=== PATIENT | female | born 1995 | race Caucasian/White ===

== ENCOUNTER 2024-06-01 01:16 | Inpatient (IN) | payer OTHER ==
[2024-06-01 01:37] VITALS: BMI 33.5
[2024-06-01] MEDS ORDERED: Acetaminophen 500 MG TAB PO PRN (02:49)
[2024-06-01] MEDS ORDERED: Misoprostol 200 MCG TAB PR PRN (02:49)
[2024-06-01] MEDS ORDERED: Methylergonovine 0.2 MG/ML VIAL IM PRN (02:49)
[2024-06-01] MEDS ORDERED: Lidocaine 1% (PF) 30 ML VIAL SC PRN (02:49)
[2024-06-01] MEDS ORDERED: Diphenoxylate HCl/Atropine Tablet PO PRN (02:49)
[2024-06-01] MEDS ORDERED: Carboprost 250 MCG/ML AMP IM PRN (02:49)
[2024-06-01] MEDS ORDERED: hydrALAZINE 20 MG/ML VIAL SLOW IVP PRN ×2 (02:49→12:58)
[2024-06-01] MEDS ORDERED: Promethazine HCl 25 MG/ML VIAL IM PRN ×2 (02:49→05:17)
[2024-06-01] MEDS ORDERED: Ondansetron PF 4 MG/2 ML Vial IVP PRN ×3 (02:49→12:58)
[2024-06-01] MEDS ORDERED: Tranexamic Acid 1,000 MG/10 ML VIAL IVP PRN (02:49)
[2024-06-01] MEDS ORDERED: Lactated Ringer's 1,000 ML IV SCH (03:00)
[2024-06-01] MEDS ORDERED: Misoprostol 100 MCG TAB VAG SCH (03:00)
[2024-06-01] MEDS ORDERED: Oxytocin 30 units/NS 500 ML 500 ML IV SCH ×3 (03:00→12:58)
[2024-06-01 03:15] LABS: Mean Corpuscular HGB CONC 34.3 g/dL (32.0-36.0); Mean Corpuscular Hemoglobin 29.3 pg (27.0-33.0); Mean Corpuscular Volume 85.6 fL (81.6-98.3); Platelet Count 215 10x3/uL (150-450); RBC Distribution Width 14.2 % (11.5-14.5); Red Blood Cell (RBC) Count 4.09 10x6/uL (3.90-5.03); White Blood Cell (WBC) Count 11.7 10x3/uL (3.5-10.5)
[2024-06-01 03:46] LABS: Syphilis Antibody Nonreactive (Nonreactive); Syphilis Antibody Index 0.05 S/CO (<1.00 Non-Reactive)
[2024-06-01 03:48] LABS: HBsAg Index 0.24 S/CO (0-0.99); Hep B Surf Ag - L&D Non-Reactive S/CO (NonReactive)
[2024-06-01] MEDS: fentaNYL/Ropivacaine Epidural 100 ML ONE (05:04)
[2024-06-01] MEDS ORDERED: Lactated Ringer's 500 ML IV PRN (05:17)
[2024-06-01] MEDS ORDERED: diphenhydrAMINE 50 MG/ML VIAL IVP PRN (05:17)
[2024-06-01] MEDS ORDERED: Naloxone HCl 0.4 mg/ml Vial IVP PRN ×2 (05:17)
[2024-06-01] MEDS ORDERED: Moisturizing Cream (Eucerin) 113 GM JAR TOP PRN (05:17)
[2024-06-01] MEDS ORDERED: ePHEDrine Sulfate 50 MG/10 ML VIAL SLOW IVP PRN (05:17)
[2024-06-01] MEDS ORDERED: Communication Order-Pharmacy FS SCH (05:30)
[2024-06-01] MEDS ORDERED: fentaNYL 2 mcg/Ropivacaine 0.2% Epidural 100 ML CADD EPIDURAL SCH (05:30)
[2024-06-01] MEDS ORDERED: Bupivacaine HCl 0.5%/Epinephrine 1:200,000/PF 30 ml Vial ONE (12:00)
[2024-06-01] MEDS ORDERED: Bupivacaine 0.25% HCL 30 ML VIAL ONE (12:00)
[2024-06-01] MEDS: Acetaminophen 325 MG TAB PO PRN (12:57)
[2024-06-01] MEDS ORDERED: Milk Of Magnesia 30 ML UDCUP PO PRN (12:58)
[2024-06-01] MEDS ORDERED: Bisacodyl 10 MG SUPP PR PRN (12:58)
[2024-06-01] MEDS ORDERED: diphenhydrAMINE 25 MG CAP PO PRN (12:58)
[2024-06-01] MEDS ORDERED: Preparation H Ointment 28 GM TUBE PR PRN (12:58)
[2024-06-01] MEDS ORDERED: Benzocaine-Menthol 82.5 ML CAN TOP PRN (12:58)
[2024-06-01] MEDS ORDERED: Lanolin Ointment 7 GM TUBE TOP PRN (12:58)
[2024-06-01] MEDS ORDERED: HYDROcodone/Acetaminophen 5/325 mg Tablet PO PRN ×2 (12:58)
[2024-06-01] MEDS: Ibuprofen 800 MG TAB PO SCH (13:56)
[2024-06-01] MEDS: Ferrous Sulfate 325 MG TAB PO SCH (15:58)
[2024-06-01] MEDS: Boostrix 0.5 ML (Tdap) VIAL (>/=7 yrs of age) IM ONE (17:16)
[2024-06-01] MEDS: Docusate 100 MG CAP PO SCH (21:11)
[2024-06-02 07:59] VITALS: BP 109/57; TEMP 98
[2024-06-02] MEDS: Prenatal Vitamin 1 TAB PO SCH (08:01)
== END 2024-06-02 15:40 | disposition home or self-care (01) | DRG 807 ==
LOC: CSHLD/OP 01:16 → CSHLD 02:49 → CSHPP 14:15
PROVIDERS: ADMIT Obstetrics & Gynecology; ATTEND Obstetrics & Gynecology
PROC: 10E0XZZ Delivery of Products of Conception, External Approach (ICD-10-PCS; principal; 2024-06-01)
PROC: 10907ZC Drainage of Amniotic Fluid, Therapeutic from Products of Conception, Via Natural or Artificial Opening (ICD-10-PCS; 2024-06-01)
PROC: 0HQ9XZZ Repair Perineum Skin, External Approach (ICD-10-PCS; 2024-06-01)
PROC: 0UQMXZZ Repair Vulva, External Approach (ICD-10-PCS; 2024-06-01)
DX: O48.0 Post-term pregnancy (principal); Z37.0 Single live birth; Z3A.41 41 weeks gestation of pregnancy; Z88.2 Allergy status to sulfonamides; O70.0 First degree perineal laceration during delivery; O71.82 Other specified trauma to perineum and vulva
CPT/HCPCS: 36415; 51702; 85027; 86780; 86850; 86900; 86901; 87340; 99285; J0665